=== PATIENT | male | born 1985 | race Caucasian/White ===

== ENCOUNTER 2019-05-25 14:49 | Emergency (ER) | payer OTHER ==
[~2019-05-25] VITALS: Ht 182.9 cm; Wt 95.0 kg
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
[2019-05-25] MEDS ORDERED: DIAZEPAM 5 MG TABLET ONE (15:13)
[2019-05-25] MEDS ORDERED: KETOROLAC 30 MG/1 ML ONE (15:13)
--- NOTE | 2019-05-25 15:15 | NUR ---
REPORT GIVEN TO CAYLA HASSAN.
--- NOTE | 2019-05-25 15:22 | NUR ---
PT MEDICATED PER ORDERS. RV'WD POC, HE VERBALIZES UNDERSTANDING. FAMILY AT BS.
[2019-05-25] MEDS ORDERED: KETOROLAC 30 MG/1 ML IM ONE (15:30)
[2019-05-25] MEDS ORDERED: DIAZEPAM 5 MG TABLET PO ONE (15:30)
--- NOTE | 2019-05-25 15:55 | NUR ---
PT STILL C/O NECK PAIN/TIGHTNESS TO SHOULDERS. CHART UP FOR RECHECK.
[2019-05-25 16:16] VITALS: BP 120/82
--- NOTE | 2019-05-25 16:25 | NUR ---
D/C INSTRUCTIONS, MEDS & F/U APPT RV'WD WITH PT, HE VERBALIZES UNDERSTANDING. RX GIVEN X2. PT AMBULATED OUT OF ED WITHOUT DIFFICULTY. Addendum: 05/25/19 at 1635 by SOCRATESON ERP WAS IN FOR RECHECK.
== END 2019-05-25 16:37 | disposition home or self-care (01) ==
LOC: ED 16:05
DX: S16.1XXA Strain of muscle, fascia and tendon at neck level, initial encounter (principal); S29.012A Strain of muscle and tendon of back wall of thorax, initial encounter; V49.49XA Driver injured in collision with other motor vehicles in traffic accident, initial encounter; Y93.89 Activity, other specified; Y92.410 Unspecified street and highway as the place of occurrence of the external cause; Y99.8 Other external cause status
CPT/HCPCS: 96372; 99283; J1885